=== PATIENT | female | born 1985 | race Caucasian/White ===

== ENCOUNTER 2017-07-02 20:35 | Emergency (ER) | payer OTHER ==
[~2017-07-02] VITALS: Ht 160 cm; Wt 68.0 kg
[2017-07-02 20:37] VITALS: BP 128/92
[2017-07-02] MEDS ORDERED: BCP (20:45)
[2017-07-02] MEDS ORDERED: ACYC-57 PO (20:45)
[2017-07-02] MEDS ORDERED: PARO20TA4 PO (20:45)
[2017-07-02] MEDS ORDERED: THYR60TA PO (20:45)
== END 2017-07-02 22:07 | disposition home or self-care (01) ==
LOC: ED 21:59
DX: S61.411A Laceration without foreign body of right hand, initial encounter (principal); X58.XXXA Exposure to other specified factors, initial encounter; Y93.89 Activity, other specified; Y92.098 Other place in other non-institutional residence as the place of occurrence of the external cause; Y99.8 Other external cause status
CPT/HCPCS: 12001

== ENCOUNTER → 2018-01-09 | Outpatient (CLI) | payer OTHER ==
[~2018-01-09] MED LIST: ACYC-57 PO; BCP; GADOBUTROL 7.5 MMOL/7.5 ML VIAL ONE; PARO20TA4 PO; THYR60TA PO
== END | disposition home or self-care (01) ==
LOC: CFH 07:15
PROVIDERS: ATTEND Psychiatry & Neurology Neurology
DX: G31.84 Mild cognitive impairment of uncertain or unknown etiology (principal)
CPT/HCPCS: 70553; A9585

== ENCOUNTER 2019-12-03 14:28 | Emergency (ER) | payer OTHER ==
[~2019-12-03] VITALS: Ht 160 cm; Wt 68.1 kg
[~2019-12-03 14:28] MED LIST changes: -GADOBUTROL 7.5 MMOL/7.5 ML VIAL ONE
[2019-12-03] MEDS ORDERED: KETOROLAC 30 MG/1 ML ONE (15:22)
[2019-12-03] MEDS ORDERED: CEFTRIAXONE 1,000 MG ONE (15:23)
[2019-12-03] MEDS ORDERED: CEFTRIAXONE 1,000 MG IM ONE (15:30)
[2019-12-03] MEDS ORDERED: KETOROLAC 30 MG/1 ML IM ONE (15:30)
--- NOTE | 2019-12-03 15:50 | NUR ---
meds per ibrahima. brissa. as
== END 2019-12-03 16:12 | disposition home or self-care (01) ==
LOC: ED 16:05
DX: L03.114 Cellulitis of left upper limb (principal)
CPT/HCPCS: 73130; 96372; 99283; J0696; J1885